=== PATIENT | male | born 1950 | race Caucasian/White ===

== ENCOUNTER 2023-11-13 07:06 | Emergency (ER) | payer MEDICARE, BC ==
[~2023-11-13] VITALS: Ht 190.5 cm; Wt 108.2 kg
[2023-11-13] MEDS ORDERED: COLCHICINE0.6 M1 PO (08:01)
[2023-11-13] MEDS ORDERED: INDOMETHACIN50 MG PO (08:01)
[2023-11-13 08:08] VITALS: BP 178/80
== END 2023-11-13 08:08 | disposition home or self-care (01) ==
LOC: ED 07:06
DX: M10.9 Gout, unspecified (principal); I10 Essential (primary) hypertension
CPT/HCPCS: 99283